=== PATIENT | male | born 1990 | race Two or more races ===

== ENCOUNTER 2021-02-08 05:09 | Emergency (ER) | payer SELFPAY ==
[2021-02-08] MEDS ORDERED: Ketorolac 15 MG/ML SDV IVPUSH STA (05:37)
--- NOTE | 2021-02-08 05:41 | EDM.PDOC ---
ED HPI GENERAL MEDICAL PROBLEM - General Chief Complaint: Chest Pain Stated Complaint: CHEST PAINS Time Seen by Provider: 02/08/21 05:38 - History of Present Illness INITIAL COMMENTS - FREE TEXT/NARRATIVE: HISTORY AND PHYSICAL: History of present illness: This is a 30-year-old gentleman with no history of hypertension, diabetes, hypercholesterolemia, negative tobacco use, negative prior CAD, negative family history for CAD who presents ER today secondary to sharp left-sided chest pain that started yesterday at approximately 7 AM after lifting a 30 pound steel object. Patient reports he has had pain the the entirety of the last 24 hours however it does get better and worse at times. Patient reports the pain increases when he takes a deep breath and or moves his torso. Patient denies any shortness of breath, diaphoresis, pain rating to his back she will her arms, nausea, vomiting. Patient reports no recent fevers, shakes, chills, vomiting, diarrhea, dysuria, frequency, urgency, melena, bright red blood per rectum. Patient denies any exertional component with the pain. Patient reports the pain increases when he takes a deep breath in or when he is asked to cough. Patient denies any calf tenderness or swelling. Patient has any history of DVT or PE in the past. Patient reports that the pain started while he was lifting a 30 pound object and it hurts whenever he moves his arms. Review of systems: As per history of present illness and below otherwise all systems reviewed and negative. Past medical history: As per history of present illness and as reviewed below otherwise noncontributory. Surgical history: As per history of present illness and as reviewed below otherwise noncontributory. Social history: No reported history of drug abuse. Family history: As per history of present illness and as reviewed below otherwise noncontributory. Physical exam: This patient was seen and evaluated during the 2019 SARS-CoV-2 novel coronavirus pandemic period. Community viral transmission is ongoing at time of this encounter and the emergency department is operating under pandemic response procedures. Constitutional: Patient is oriented to person, place, and time. Appears well- developed and well-nourished. No distress. HEENT: Moist mucous membranes Head: Normocephalic and atraumatic Eyes: Right eye exhibits no discharge. Left eye exhibits no discharge. No scleral icterus Neck: Normal range of motion. No tracheal deviation present. Cardiovascular: Normal rate and regular rhythm. No murmurs gallops or rubs. Patient with reproducible tenderness palpation to his left anterior chest wall as well as left lateral chest wall. Patient has reproducible pain when he takes a deep inspiration or coughs in the ED. Patient with reproducible pain when asked to rotate his torso or utilize his left upper extremity. Pulmonary: Effort normal, no respiratory distress. No wheezing rales or rhonchi Abdominal: No distention Musculoskeletal: Normal range of motion Neurologic: Alert and oriented to person, place and time. Skin: [place], warm and dry. Psychiatric: Normal mood and affect. Behavior is normal. Judgment and thought content normal. Nursing note and vital signs have been reviewed Diagnostics: Chest Xray: Normal cardiac silhouette No infiltrates or effusions identified. No PTX No evidence of acute bony fracture. As interpreted by ER MD: Pau EKG: February 08, 2021 5:11 AM As interpreted by ER physician: Pau: Nonspecific ST-T wave abnormalities Normal axis No evidence of ST elevation CA Normal sinus rhythm heart rate of 85 Therapeutics: Toradol 15 mg IV Assessment and plan: 30-year-old gentleman with low risk for coronary artery disease who presents ER today with reproducible left-sided anterior chest wall that is sharp in nature and started while lifting a heavy object. Pain has been constant for the last 24 hours. Patient's EKG is unremarkable. Patient's chest x-ray is unremarkable. Patient will have a CBC, CMP and troponin checked. 6:15 AM: Patient's labs are all within normal limits. Patient's troponin is negative. Patient's presentation does not appear to be consistent for cardiac etiology of chest pain. Patient's pain is reproducible in nature. Patient be discharged home with a prescription for ibuprofen, instructions to follow-up with his primary care physician. Reassessment at the time of disposition demonstrates that the patient is in no acute distress. The patient has remained stable throughout the entire ED visit and is without objective evidence for acute process requiring urgent intervention or hospitalization. The patient is stable for discharge, counseling is provided as documented above, discussed symptomatic treatment and specific conditions for return. I have spoken with the patient/caregiver and discussed todays findings, in addition to providing specific details for the plan of care. Questions are answered and there is agreement with the plan. Definitive disposition and diagnosis as appropriate pending reevaluation and review of above. - Related Data Allergies Allergy/AdvReac Type Severity Reaction Status Date / Time No Known Allergies Allergy Verified 02/08/21 05:13 Home Meds: Home Meds Ibuprofen 600 mg PO Q6HR PRN #30 tablet 02/08/21 [Rx] Past Medical History - Past Health History Medical/Surgical History: Denies Medical/Surgical History - Infectious Disease History Infectious Disease History: Reports: None Social & Family History - Family History Family Medical History: No Pertinent Family History - Tobacco Use Tobacco Use Status *Q: Never Tobacco User - Recreational Drug Use Recreational Drug Use: No ED ROS GENERAL - Review of Systems Review Of Systems: See Below ED EXAM, GENERAL - Physical Exam Exam: See Below Course - Vital Signs Last Recorded V/S: Last Vital Signs Temp Pulse 85 02/08/21 05:13 Resp 18 02/08/21 05:13 BP 128/74 02/08/21 05:13 Pulse Ox 95 02/08/21 05:13 - Orders/Labs/Meds Orders: Active Orders 24 hr Category Date Time Status Chest 2V [CR] Stat Exams 02/08/21 05:41 Taken Labs: Laboratory Tests 02/08/21 02/08/21 02/08/21 Range/Units 05:20 05:20 05:20 WBC 7.05 (4.0-11.0) K/uL RBC 4.79 (4.50-5.90) M/uL Hgb 13.8 (13.0-17.0) g/dL Hct 40.9 (38.0-50.0) % MCV 85.4 (80.0-98.0) fL MCH 28.8 (27.0-32.0) pg MCHC 33.7 (31.0-37.0) g/dL RDW Std Deviation 44.0 (28.0-62.0) fl RDW Coeff of Cipriano 14 (11.0-15.0) % Plt Count 411 H (150-400) K/uL MPV 10.60 (7.40-12.00) fL Neut % (Auto) 50.3 (48.0-80.0) % Lymph % (Auto) 37.0 (16.0-40.0) % Morrison % (Auto) 9.6 (0.0-15.0) % Eos % (Auto) 2.7 (0.0-7.0) % Baso % (Auto) 0.4 (0.0-1.5) % Neut # (Auto) 3.5 (1.4-5.7) K/uL Lymph # (Auto) 2.6 H (0.6-2.4) K/uL Morrison # (Auto) 0.7 (0.0-0.8) K/uL Eos # (Auto) 0.2 (0.0-0.7) K/uL Baso # (Auto) 0.0 (0.0-0.1) K/uL Nucleated RBC % 0.0 /100WBC Nucleated RBCs # 0 K/uL Sodium 140 (136-148) mmol/L Potassium 4.2 (3.5-5.1) mmol/L Chloride 103 (98-107) mmol/L Carbon Dioxide 30.0 (21.0-32.0) mmol/L BUN 15 (7.0-18.0) mg/dL Creatinine 1.0 (0.8-1.3) mg/dL Est Cr Clr Drug Dosing 95.70 mL/min Estimated GFR (MDRD) > 60.0 ml/min Glucose 133 H (74-106) mg/dL Calcium 8.5 (8.5-10.1) mg/dL Total Bilirubin 0.4 (0.2-1.0) mg/dL AST 28 (15-37) IU/L ALT 51 (14-63) IU/L Alkaline Phosphatase 109 (46-116) U/L Troponin I < 0.050 (0.000-0.056) ng/mL Total Protein 7.7 (6.4-8.2) g/dL Albumin 3.5 (3.4-5.0) g/dL Globulin 4.2 H (2.6-4.0) g/dL Albumin/Globulin Ratio 0.8 L (0.9-1.6) SARS-CoV-2 RNA (SINGH) NEGATIVE (NEGATIVE) Meds: Medications Discontinued Medications Generic Name Dose Route Start Last Admin Trade Name Freq PRN Reason Stop Dose Admin Ketorolac Tromethamine 15 mg 02/08/21 05:37 02/08/21 05:43 Ketorolac 15 Mg/Ml Sdv IVPUSH 02/08/21 05:38 15 mg Q6H STA Administration Departure - Departure Time of Disposition: 06:14 Disposition: Home, Self-Care 01 Condition: Good Clinical Impression: Chest pain, musculoskeletal - Discharge Information Instructions: Chest Wall Pain, [id number], Nonspecific Chest Pain, Adult Forms: ED Department Discharge Additional Instructions: You were seen and evaluated in the ER today secondary to left-sided chest pain. The pain appears to be more likely related to musculoskeletal discomfort. Your EKG and blood tests were all normal. Your chest x-ray was unremarkable. You will be given a prescription for ibuprofen to help with your pain and discomfort. Please make an appointment to see your family doctor next week for reevaluation. The following information is given to patients seen in the emergency department who are being discharged to home. This information is to outline your options for follow-up care. We provide all patients seen in our emergency department with a follow-up referral. The need for follow-up, as well as the timing and circumstances, are variable depending upon the specifics of your emergency department visit. If you don't have a primary care physician on staff, we will provide you with a referral. We always advise you to contact your personal physician following an emergency department visit to inform them of the circumstance of the visit and for follow-up with them and/or the need for any referrals to a consulting specialist. The emergency department will also refer you to a specialist when appropriate. This referral assures that you have the opportunity for follow-up care with a specialist. All of these measure are taken in an effort to provide you with optimal care, which includes your follow-up. Under all circumstances we always encourage you to contact your private physician who remains a resource for coordinating your care. When calling for follow-up care, please make the office aware that this follow-up is from your recent emergency room visit. If for any reason you are refused follow-up, please contact the [facility] Emergency Department at and asked to speak to the emergency department charge nurse. [facility] - [facility] [address] [place] [id number] [address] Sepsis Event Note (ED) - Focused Exam Vital Signs: Vital Signs Pulse Resp BP Pulse Ox 02/08/21 05:13 85 18 128/74 95 - My Orders Last 24 Hours: My Active Orders 02/08/21 05:41 Chest 2V [CR] Stat - Assessment/Plan Last 24 Hours: My Active Orders 02/08/21 05:41 Chest 2V [CR] Stat
[2021-02-08 05:53] LABS: BLOOD UREA NITROGEN,BUN 15 mg/dL (7.0-18.0); CHLORIDE,CL 103 mmol/L (98-107); GLUCOSE RANDOM 133 mg/dL (74-106); POTASSIUM,K 4.2 mmol/L (3.5-5.1); SODIUM,NA 140 mmol/L (136-148)
--- NOTE | 2021-02-08 06:19 | CR ---
Indication: Shortness of breath Technique: Chest 2 views Comparison: Chest x-ray 09/22/2018 Findings/Impression: Cardiovascular and mediastinum: Heart size and vasculature are normal in caliber and appearance. Mediastinum is within normal limits. Lungs and pleural spaces: Low lung volumes without pleural effusion or pneumothorax. Minimal patchy and linear opacities at the lung bases, likely atelectasis. Bones and soft tissues: No significant findings. Dictated by Rene Espinoza MD @ 02/08/2021 6:18:56 AM (Electronically Signed)
== END 2021-02-08 06:28 | disposition home or self-care (01) ==
LOC: MW.ED 05:09
DX: R07.9 Chest pain, unspecified (principal); Z20.822 Contact with and (suspected) exposure to COVID-19
CPT/HCPCS: 71046; 80053; 84484; 85025; 87635; 93005; 99283; J1885; U0002

== ENCOUNTER 2023-12-01 05:46 | Emergency (ER) | payer BC ==
[2023-12-01] MEDS: Meclizine 25 MG Tab PO ONE (06:15)
[2023-12-01] MEDS: Acetaminophen 500 MG Tab PO ONE (06:15)
[2023-12-01] MEDS: Sodium Chloride 0.9% 1,000 ML IV ONE (06:28)
[2023-12-01] MEDS: Ketorolac 30 MG/ML SDV IVPUSH ONE (06:28)
[2023-12-01] MEDS: Sodium Chloride 0.9% 10 ML Syringe FLUSH PRN (06:28)
[2023-12-01] MEDS: diphenhydrAMINE 50 MG/ML SDV IVPUSH ONE ×3 (06:29→07:36)
[2023-12-01 06:38] LABS: BASOPHILS ABSOLUTE AUTO 0.05 K/uL (0.00-0.20); BASOPHILS PERCENT AUTO 0.9 % (0.0-1.0); EOSINOPHILS PERCENT AUTO 3.5 % (0.0-6.0); HEMATOCRIT 41.7 % (42.0-52.0); HEMOGLOBIN 14.1 g/dL (14.0-18.0); IMMATURE GRAN ABSOLUTE AUTO 0.01 K/uL (0.00-0.05); IMMATURE GRAN PERCENT AUTO 0.2 % (0.0-0.4); LYMPHOCYTES ABSOLUTE AUTO 2.51 K/uL (1.00-4.80); LYMPHOCYTES PERCENT AUTO 44.1 % (24.0-44.0); MEAN CORPUSCULAR HEMOGLOBIN 29.3 pg (28.0-32.0); MEAN CORPUSCULAR HGB CONC 33.8 g/dL (32.0-36.0); MEAN CORPUSCULAR VOLUME 86.7 fL (83.0-99.0); MEAN PLATELET VOLUME 10.1 fL (9.4-12.4); NEUTROPHILS ABSOLUTE AUTO 2.52 K/uL (1.80-7.70); NEUTROPHILS PERCENT AUTO 44.3 % (41.0-71.0); PLATELET COUNT,PLT 297 K/uL (150-400); RED BLOOD CELL COUNT 4.81 M/uL (4.52-5.90); WHITE BLOOD CELL COUNT,WBC 5.69 K/uL (3.9-11.3)
[2023-12-01 06:52] LABS: HEMOGLOBIN A1C 5.2 %
[2023-12-01 06:58] LABS: A/G RATIO 1.1 (0.9-1.6); ALBUMIN 3.8 g/dL (3.4-5.0); BILIRUBIN TOTAL 0.4 mg/dL (0.2-1.0); CALCIUM 8.8 mg/dL (8.5-10.1); CARBON DIOXIDE,CO2 27.9 mmol/L (21.0-32.0); CREATININE 0.8 mg/dL (0.8-1.3); EST CRCL DRUG DOSING (CG) 116.3 mL/min; MAGNESIUM 1.9 mg/dL (1.8-2.4); POTASSIUM,K 3.7 mmol/L (3.5-5.1); PROTEIN TOTAL,TP 7.4 g/dL (6.4-8.2)
[2023-12-01] MEDS: Prochlorperazine 10 MG/2 ML SDV IVPUSH ONE (07:37)
== END 2023-12-01 08:05 | disposition home or self-care (01) ==
LOC: MW.ED 05:46
DX: R51.9 Headache, unspecified (principal); R42 Dizziness and giddiness; E11.9 Type 2 diabetes mellitus without complications
CPT/HCPCS: 36415; 80053; 83036; 83690; 83735; 85025; 96361; 96374; 96375; 96376; 99284; A9270; J0780; J1200; J1885; J3490; J7030